=== PATIENT | female | born 1945 | race Caucasian/White ===

== ENCOUNTER 2016-12-28 21:09 | Inpatient (IN) | payer MEDICARE ==
[~2016-12-28] VITALS: Ht 162.6 cm; Wt 62.2 kg
[~2016-12-28 21:09] MED LIST: ACET-1890 PO; AMLO10TA3 PO; ASCO500C6 PO; ASPI-628 PO; CHOL200020 PO; CYAN1TAB42 PO; FERR-83 PO; LIP40 PO; LISI10TA2 PO; METO25TA6 PO; OMEP-113 PO
[2016-12-28 21:25] VITALS: BP 191/80; PULSE 97; RESP 15; O2SAT 99
--- NOTE | 2016-12-28 22:04 | ED.REPORT ---
HPI-General Illness Date of Service Dec 28, 2016 ED Provider: Dr. Agarwal Pt is a 71 y/o female w/ a hx of hypertension, hyperlipidemia, GERD, presenting to the ED via EMS w/ her son due to nausea and vomiting for 5 days. She stopped eating 3 days ago secondary to her vomiting but has been keeping down fluids. Today, she became very dizzy (spinning sensation which she attributes to vertigo ) and lightheaded which was exacerbated by movement. She has also been profoundly diffusely weak. Pt denies abdominal pain, hematemesis, diarrhea, CP , SOB, headache, dysuria, hematuria, fever, chills, melena. Medics noted a drop in BP from 185 to 128 when transitioning from laying to sitting. She lives on her own. She had a GI bleed 2 years ago which required 4 units of blood transfusion. Her symptoms today are not similar to that time. Nursing Notes Stated Complaint: DIZZY, PALE Chief Complaint: General Complaint Nursing Notes Reviewed: Yes Allergies: Coded Allergies: meperidine (Verified Allergy, Severe, chest pressure, 12/28/16) codeine (Verified Allergy, Intermediate, vomit, 12/28/16) tetracycline (Verified Allergy, Intermediate, vomit, 12/28/16) Scheduled Amlodipine (Amlodipine) 10 Mg Tablet 10 MG PO DAILY Ascorbic Acid (Vitamin C) 500 Mg Capsule.er 500 MG PO DAILY Aspirin (Aspir 81) 81 Mg Tablet. 81 MG PO DAILY Atorvastatin (Lipitor) 40 Mg Tablet 40 MG PO HS Cholecalciferol (Vitamin D3) (Vitamin D-3) 2,000 Unit Capsule 1,000 UNIT PO DAILY Cyanocobalamin/Folic Acid (Vitamin N13-Kjiel Acid Tablet) 1 Each Tablet 1 EACH PO DAILY Ferrous Sulfate (Ferrous Sulfate) 325 Mg Tablet 325 MG PO DAILY Lisinopril (Lisinopril) 10 Mg Tablet 10 MG PO DAILY Metoprolol Tartrate (Metoprolol Tartrate) 25 Mg Tablet 25 MG PO BID Omeprazole Magnesium (Omeprazole) 20 Mg Capsule. 20 MG PO DAILY Scheduled PRN Acetaminophen (Tylenol) 325 Mg Tablet 325 MG PO PRN PRN PRN For Pain General Time Seen by MD: 22:03 Chief Complaint Vomiting Hx Obtained From: Patient, Son, EMS Arrived By: Ambulance Sudden in Onset?: No Onset Occurred: 5 days ago Symptom Duration: Since onset Severity: Current: No pain currently Severity: Maximum: No pain Past Medical History Past Medical History Hypertension Hyperlipidemia GERD Vertigo Hx of GI bleed Past Surgical History x3 Cholecystectomy Appendectomy Hernia repair Smoking History Current Every Day Smoker, Light Tobacco Smoker Ambulatory Status Independent Review of Systems Full Review of Systems Constitutional: Reports: Weakness - generalized, Denies: Chills, Fever Respiratory: Denies: Shortness of breath Cardiovascular: Denies: Chest pain GI: Reports: Nausea, Vomiting, Denies: Abdominal pain, Bloody/tarry stool, Diarrhea, Hematemesis, Hematochezia, Melena Female: Denies: Dysuria, Hematuria Neurologic: Reports: Dizziness, Lightheaded, Spinning sensation, Denies: Headache Complete sys rev & neg: except as marked. Physical Exam Vital Signs Vital Signs Date Time Temp Pulse Resp B/P Pulse Ox O2 Delivery O2 Flow Rate FiO2 12/28/16 22:38 189/85 147/91 120/59 12/28/16 21:25 37.2 97 15 191/80 99 Room Air Initial VS: Reviewed, Vital signs abnormal Head / Eyes: Atraumatic, Normocephalic, PERRL Neck: Supple, Full range of motion Respiratory: Breath sounds normal, Clear to auscultation, No respiratory distress Extremities: Vascular intact, Neuro intact, No swelling, No tenderness Skin: Warm, Dry, No cyanosis Neurologic: Alert, Oriented, Nonfocal Psychiatric: Mood/affect normal, Behavior normal, Normal thought content General/Constitutional: Awake, Alert, No acute distress, Cooperative, Not toxic appearing ENT: Atraumatic, Airway patent Mouth: Positive: Mucous membranes dry Cardiovascular: Heart rate NL, Regular rhythm, Heart sounds NL, No gallop, No murmurs, No rubs, Cap refill not delayed, Peripheral circulation NL Heart rate increases when going from lying to sitting up Abdomen: Atraumatic, Soft, Non-tender, No guarding, No rebound, No distention, No palpable mass Interpretation & Diagnostics Lab Results Interpretation Result Diagram: 12/28/16212212/28/162122 Test 12/28/16 21:23 White Blood Count 10.4th/mm3 (3.8-10.1) Red Blood Count 6.50mil/mm3 (3.90-5.20) Hemoglobin 12.0g/dL (12.0-15.6) Hematocrit 40.3% (35.0-46.0) Mean Corpuscular Volume 62.0fL (81-100) Mean Corpuscular Hemoglobin 18.5pg (27.0-35.0) Mean Corpuscular Hemoglobin Concent 29.8% (32.0-37.0) Red Cell Distribution Width 20.8% (12.3-15.4) Platelet Count javi/L (150-400) Neutrophils (%) (Auto) 68.5% (40-74) Lymphocytes (%) (Auto) 22.3% (14-46) Monocytes (%) (Auto) 7.6% (4-12) Eosinophils (%) (Auto) 1.0% (0-5) Basophils (%) (Auto) 0.3% (0-3) Hold Purple Top Tube Received (Received) Prothrombin Time 10.7sec (8.1-12.5) Prothromb Time International Ratio 1.00ratio Activated Partial Thromboplast Time 26.8sec (22.8-33.0) Hold Blue Top Tube Received (Received) Sodium Level 135mEq/L (134-144) Potassium Level 3.9mEq/L (3.5-5.2) Chloride Level 91mEq/L (97-108) Carbon Dioxide Level 16mmol/L (18-29) Blood Urea Nitrogen 28mg/dL (8-27) Creatinine 1.20mg/dL (0.57-1.00) Estimat Glomerular Filtration Rate 64mL/min (>59) Glucose Level 94mg/dL (60-99) Calcium Level 9.6mg/dL (8.5-10.1) Magnesium Level 2.2mg/dL (1.6-2.6) Total Bilirubin 0.9mg/dL (0.0-1.2) Aspartate Amino Transf (AST/SGOT) 23U/L (0-50) Alanine Aminotransferase (ALT/SGPT) 11U/L (0-32) Alkaline Phosphatase 115U/L (25-165) Troponin T 0.010ug/L (0.0-0.011) Pro-B-Type Natriuretic Peptide 367.0pg/mL (0-301) Total Protein 8.0g/dL (6.4-8.4) Albumin 4.4g/dL (3.4-5.0) Hold Red Top Tube Received (Received) Hold [place] Top Tube Received (Received) ECG Interpretation ECG Interpretation: Sinus rhythm rate 89 Very small Q wave in II, III, and AvF Time: 23:18 Interpreted by: ED physician Normal ECG Interpretation: No acute ischemic changes X-Ray Chest Interpretation View: Portable, 1 view Interpretation / Wet Read by: Wet read ED physician NL X-Ray Chest Findings: No infiltrate, No acute disease Re-Eval/Medical Decision Med Decision/Clinical Course 71-year-old female with past medical history of hypertension and hyperlipidemia here with vertiginous symptoms for the last several days, along with orthostasis and vomiting. Differential diagnosis includes but is not limited to dehydration versus electrolyte abnormality versus acute kidney injury versus viral gastroenteritis. Patient's lab are remarkable for mild renal insufficiency. I do not know what her baseline renal function is. She does not show any evidence of anemia. She was extremely orthostatic in the emergency department both symptomatically, and from vital signs standpoint. She was given 2 L of fluids, and admitted to the hospitalist service for her orthostasis. She is aware and amenable to admission at this time. Time of Eval: 23:18 Re-Evaluation/Progress Note: Pt rechecked. Informed pt of need for admission for further evaluation. Pt understands and agrees with plan for admission. All questions addressed. Consultation : Referral / Consult Name: Siddharth Perez MD Consulted With: Hospitalist Call Returned at: 23:22 Landscape Foreman: Will see patient, Agrees with eval, Agrees with plan, Accepts admit Counseled Regarding: Diagnosis, Lab results, Need for admission Discharge & Departure Primary Impression: Orthostasis Disposition: ADMITTED TO HOSPITAL Discharge Condition All VS Reviewed: Yes Condition: Stable Referrals: NOPCP (PCP) Scribe Attestation Portions of this note were transcribed by Abran Puentes. I, Dr. Agarwal, personally performed the history, physical exam and medical decision-making; I reviewed and confirmed the accuracy of the information in the transcribed note. Signed by Cailin Hebert, 12/28/16 - [id number] Irina Agarwal MD Dec 28, 2016 22:04 ABRAN PUENTES Dec 28, 2016 22:20
[2016-12-28 22:15] LABS: BASOPHILS % (AUTO) 0.3 % (0-3); MONOCYTES % (AUTO) 7.6 % (4-12); Mean Corpuscular Hemoglobin 18.5 pg (27.0-35.0); NEUTROPHILS % (AUTO) 68.5 % (40-74)
[2016-12-28] MEDS ORDERED: 0.9% Sodium Chloride 1,000 ML IV ONE (22:20)
[2016-12-28 22:26] LABS: TROPONIN T 0.01 ug/L (0.0-0.011)
[2016-12-28 22:37] LABS: Magnesium 2.2 mg/dL (1.6-2.6)
[2016-12-28 22:38] VITALS: BP_SYST 120; BP_SYST 147; BP_SYST 189; BP_DIAS 59; BP_DIAS 85; BP_DIAS 91
[2016-12-28] MEDS ORDERED: Ondansetron 2 mg/mL 2 mL Inj IVPUSH PRN (23:25)
[2016-12-28] MEDS ORDERED: Alum-Mag Hydrox-Simeth 30 mL Suspension PO PRN (23:25)
[2016-12-29] VITALS (10 sets, daily range): BP systolic 116–183; BP diastolic 66–83; PULSE 91–101; RESP 17–20; O2SAT 97–98
[2016-12-29] MEDS ORDERED: Ondansetron 2 mg/mL 2 mL Inj IVPUSH PRN (00:40)
[2016-12-29] MEDS ORDERED: Polyethylene Glycol (PEG) 17 Gm Powder PO PRN (00:40)
[2016-12-29] MEDS ORDERED: 0.9% Sodium Chloride 1,000 ML IV ONE (00:40)
[2016-12-29] MEDS ORDERED: Alum-Mag Hydrox-Simeth 30 mL Suspension PO PRN (00:40)
[2016-12-29] MEDS ORDERED: Labetalol 5 mg/mL 4 mL Inj IVPUSH PRN (01:35)
[2016-12-29 01:50] LABS: APPEARANCE,URINE CLEAR (CLEAR,HAZY); COLOR,URINE YELLOW (YELLOW); OCCULT BLOOD,URINE SMALL (NEGATIVE); PH,URINE 5.5 (5.0-8.0); UROBILINOGEN,URINE NORMAL (NORMAL)
--- NOTE | 2016-12-29 02:45 | PCM.HPMED ---
Subjective Date of Service Dec 29, 2016 Primary Provider: Admitting Physician: Siddharth Perez MD Primary Care Physician: Jones Attending Physician: Siddharth Perez MD Chief Complaint: Dizziness History of Present Illness: Patient is a 71-year-old female with history of CVA, hypertension, and dyslipidemia presenting with dizziness and vomiting. The patient reports onset of dizziness about five days ago. This was preceded by a couple of days where she "didn't feel very well," however, the patient isn't able elaborate on this. The patient describes the dizziness as the room spinning. She states it was noticeable upon standing and caused her to vomit. As a result, she hasn't eaten over the past four days and has only been drinking water. The patient reports head movements seem to make the dizziness worse. Patient's son visited her today and subsequently summoned EMS. In the ED, the patient was found to be orthostatic. At time of visit, the patient reports her dizziness has improved. She endorses fatigue but otherwise denies weakness, headache, acute vision change, tinnitus, hearing changes, changes in smell, numbness, tingling, chest pain, shortness of breath, abdominal pain, diarrhea, constipation, dysuria. In the ED, vitals: temp 37.2, HR 97, RR 15 satting 99% on room air, BP 191/80. Notable labs: BUN 28, creatinine 1.20 Review of Systems: A comprehensive review of systems was conducted with the patient and found to be negative except as above in the History of Present Illness. Allergies Coded Allergies: meperidine (Verified Allergy, Severe, chest pressure, 12/28/16) codeine (Verified Allergy, Intermediate, vomit, 12/28/16) tetracycline (Verified Allergy, Intermediate, vomit, 12/28/16) Home Medications None reported PMH Hypertension Dyslipidemia GERD History of GI bleed History of CVA ( 1990), TIA (2013) . Surgical History x3 Cholecystectomy Appendectomy Hernia repair Angioplasty for renal artery stenosis Family History Mother at [id number] from intracerebral hemorrhage following trauma Father at [id number] from [place] Social History Occupation: Retired, former [employer] Hx Alcohol Use: No Hx Substance Use: No Smoking Status: Current Every Day Smoker (Smokes 2 packs per week. Has smoked > 30 years), Light Tobacco Smoker Exam Vital Signs Vital Sign - Last Date Time Temp Pulse Resp B/P Pulse Ox O2 Delivery O2 Flow Rate FiO2 12/28/16 22:38 189/85 147/91 120/59 12/28/16 21:25 37.2 97 15 99 Room Air Intake and Output 12/28/16 12/28/16 12/29/16 Cumulative From/Thru 15:00 23:00 07:00 12/28/16 21:25 - 12/28/16 22:33 Intake Total 1000 ml 1000 ml Balance 1000 ml 1000 ml Intake IV Total 1000 ml 1000 ml Exam General: No acute distress, well-developed, well-nourished, appropriately interactive HEENT: Normocephalic, atraumatic. External ears without defect. Middle ear and tympanic membranes without fluid or erythema. Pupils equal, round, and reactive to light. No nystagmus. Anicteric sclerae, moist conjunctivae, and no lid lag. Oropharynx free of erythema and cobble stoning. Lips are dry. Poor dentition of remaining lower teeth. No upper teeth. Neck: Supple. No lymphadenopathy or thyromegaly. Cardiovascular: Regular rate and rhythm with no murmurs, rubs, or gallops appreciated Pulmonary: Clear to auscultation bilaterally with no crackles, wheezes, or rhonchi. Normal respiratory effort with no use of accessory muscles. Abdomen: Bowel tones present. Soft, nontender, nondistended. Extremities: No clubbing, cyanosis, edema, or lymphadenopathy appreciated. Skin: Normal temperature, turgor, and texture; no rash, ulcers, or subcutaneous nodules appreciated. Neurological: Cranial nerves grossly intact. Motor strength 5/5 upper and lower extremities bilaterally. Sensation equal bilaterally. Patient able to stand and ambulate. No known gait impairment. Negative head impulse test Psychiatric: Normal mood and affect. Alert and oriented to person, place, and time. Lab and Diagnostics Result Diagram: 12/28/16212212/28/162122 Assessment & Plan Patient is a 71-year-old female with history of CVA, hypertension, and dyslipidemia presenting with dizziness and vomiting. 1. Hypertensive emergency. Present on admission. Active -BP 191/80 on admit with vertigo and JERMAIN -Patient has history of hypertension but is not on medication as outpatient -Possibly as a result of stroke or medication non-compliance -Labetalol PRN 2. Acute vertigo with vomiting. Present on admission. Improving -Likely secondary to #1 above -CT brain -MR stroke protocol to rule out stroke 3. Acute kidney injury. Present on admission. Active -Uncertain acuity; no baseline creatinine -Creatinine 1.20 -Possibly volume depletion from vomiting and decreased intake -Follow with CMP 4. Dyslipidemia, chronic. Present on admission -Currently not on statin -Lipid panel pending 5. Hypertension, chronic. Present on admission -See #1 above -Not on any antihypertensive as outpatient -Will likely need to reinstitute prior to discharge 6. GERD, chronic. Present on admission -Follow clinically Patient Status: Patient is admitted under observation status with expected length of stay less than 2 midnights due to severity of presenting symptoms, risk of adverse event, and complexity of treatment plan. ---- Addendum: [facility] read of CT head: Mild atrophy and periventricular white matter changes consistent with the patient's age. CSF density structure in cerebellum on the left. This may represent an arachnoid cyst or an old cerebellar infarct. Lack of mass effect makes a cystic neoplasm less likely. Followup would depend on history. Old lacunar infarct on the right. No hemorrhage or other specific acute abnormality demonstrated. Radiologist: Bob Ponce MD . VTE Prophylaxis: SCDs Resuscitation Status: CPR: Attempt Resuscitation Attending Statement The patient was seen and examined together with Dr. Arizmendi on 12/28 and I agree with the history, exam and plan as outlined in the note above. Abdoul Arizmendi DO Dec 29, 2016 00:52 Siddharth Perez MD Dec 29, 2016 03:29
--- NOTE | 2016-12-29 03:09 | NUR ---
Admission Pt arrived to room 3007 alert and orientedx3, conversing in full sentences and able to make needs known. Pt denied any pain or SOB and was oriented to room, call light, bed and policies. Pts orthostatic BP was taken on arrival and found to be positive, MD notified. Pt was transported down to CT by this RN and Pt was able to self transfer to and from chair with minimal reports of dizziness. Pt instructed to not get out of bed with out calling for assistance and Pt agreed. Pt has been sleeping with call light in reach and bed in lowest position.
[2016-12-29 06:50] LABS: BASOPHILS % (AUTO) 0.4 % (0-3); EOSINOPHILS % (AUTO) 2.4 % (0-5); MONOCYTES % (AUTO) 9.5 % (4-12); Mean Corpuscular Hemoglobin 18.6 pg (27.0-35.0); Mean Corpuscular Volume 62.8 fL (81-100); NEUTROPHILS % (AUTO) 67.5 % (40-74); Platelet Count 286 bil/L (150-400)
--- NOTE | 2016-12-29 08:03 | DRSVH ---
PROCEDURE: X-RAY CHEST ONE VIEW, PORTABLE ([id number]) INDICATIONS: weakness TECHNIQUE: One view of the chest was acquired. COMPARISON: None. FINDINGS: Surgical changes and devices: None. Lungs and pleura: No pleural effusions or pneumothorax. Lungs are clear. Mediastinum: Mediastinal contours appear normal. Heart size is normal. Bones and chest wall: No suspicious bony lesions. Overlying soft tissues appear unremarkable. IMPRESSION: 1. No acute cardiopulmonary disease. Dictated by: Gagandeep Fowler M.D. on 12/29/2016 at 8:01 Approved by: Gagandeep Fowler M.D. on 12/29/2016 at 8:02
[2016-12-29] MEDS: Heparin 5,000 Unit/mL Inj SUBQ SCH ×2 (08:08→17:40)
[2016-12-29] MEDS ORDERED: Influenza (Adult) Vaccine 0.5 mL Syringe IM ONE (08:30)
[2016-12-29] MEDS ORDERED: Heparin 5,000 Unit/mL Inj SUBQ SCH (08:30)
--- NOTE | 2016-12-29 08:51 | DRSVH ---
PROCEDURE: CT BRAIN WITHOUT CONTRAST ([id number]) INDICATIONS: vertigo TECHNIQUE: Noncontrast 4.5 mm thick angled axial sections acquired from the foramen magnum to the vertex, with c oronal reformats. COMPARISON: [facility], CT, HEAD WITHOUT CONTRAST, 01/10/2014, 15:46. FINDINGS: Image quality: Excellent. CSF spaces: Basal cisterns are patent. No extra-axial fluid collections. The ventricles are symmet caitlyn in size and shape. Brain: There is a 2.4 x 2.9 x 2.5 cm hypodensity suggesting encephalomalacia in the left cerebellar hemisphere, which is new compared to 01/10/2014, likely sequelae of old infarct. There is subtle hypod ensity in the left cerebellar peduncle, suspicious for subacute infarct. A small lacunar infarct is a gain noted in the right internal capsule. No intracranial bleeds or masses. There is mild cerebral v olume loss for age, with resultant ventricular and sulcal prominence. There are moderate periventric ular and deep white matter chronic small vessel ischemic changes. There is intracranial internal car otid artery atherosclerosis. Skull and face: Calvarium and visualized facial bones appear intact, without suspicious lesions. Sinuses: Visualized sinuses and mastoids are clear. IMPRESSION: 1. Suspect an old infarct in the left cerebellar hemisphere with encephalomalacia. There is subtle hy podensity in the left cerebellar peduncle, which could represent superimposed subacute infarct. 2. A lacunar infarct in the right internal capsule. 3. Cerebral volume loss and chronic microvascular ischemic changes. No significant discrepancy with the overnight stocker radiology preliminary report. Dictated by: Jesusita Grant M.D. on 12/29/2016 at 8:34 Approved by: Jesusita Grant M.D. on 12/29/2016 at 8:49
[2016-12-29 08:57] LABS: Unsaturated Iron Binding 274.2 ug/dL
--- NOTE | 2016-12-29 12:52 | NUR ---
Transferred from MRI Patient back from MRI at 1253.
--- NOTE | 2016-12-29 13:14 | DRSVH ---
PROCEDURE: MRI STROKE PROTOCOL ([id number]) Pre- and post-contrast brain MRI, non-contrast brain MR angiogram, pre- and postcontrast neck MR cheryle ogram INDICATIONS: 5 day history of vertigo. TECHNIQUE: Brain: Noncontrast axial T1 spin echo, axial T2 fast spin echo, sagittal and axial FLAIR, coronal T2 fast spin echo, axial gradient echo, axial diffusion and ADC through the brain. After the administr ation of contrast, axial 3D VIBE of the cranial vasculature and brain. Brain MRA: Non-contrast 3-D time of flight MR angiogram, with multiple tzogwlm-ysrorrwdv-rugpmhdmpt (MIP) reformats performed. Neck MRA: Axial and sagittal TruFISP through the neck. Coronal dynamic MR angiogram during administ ration of contrast in the arterial and venous phases, with 3-dimenstional smrydnr-nwymkejmt-ycssfzsdl n (MIP) reformats constructed from subtraction images. COMPARISON: [facility], CT, CT BRAIN WO CON, 12/29/2016, 1:46. FINDINGS: Image quality: Excellent. BRAIN: CSF spaces: Ventricles are normal in size and shape. Basal cisterns are patent. No extra-axial flu id collections. Brain: No intracranial bleeds or mass effects. Reynoso-white matter interface is normal. There is mild diffuse cerebral volume loss. There is a mild degree of patchy high FLAIR signal within the perivent ricular and subcortical white matter. There is a small chronic right lateral thalamic infarct. Diffus ion weighted images demonstrate a 50 mm diameter region of elevated signal intensity within the left inferior cerebellum involving the cerebellar vermis, as well as the posterior aspect of the left supe rior medulla oblongata. This region demonstrates moderate FLAIR signal elevation, and is consistent w ith a late subacute infarct. Enlarged flow voids involving the left internal carotid artery are prese nt. There is curvilinear enhancement seen within the left cerebellar infarct, compatible with normal post infarct sequelae. Skull and face: Calvarial marrow signal is normal. Orbits appear normal. Sinuses: Sinuses and mastoids are clear. BRAIN MR ANGIOGRAM: Anterior circulation: There is severely reduced flow within the cavernous segment of the right intern retail al carotid artery. 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 There is a 6 mm diameter saccular aneurysm protruding medially from the anterior asp ect of the cavernous segment of the left internal carotid artery. The flow within the paired anterior cerebral arteries is normal and symmetric. The flow within the middle cerebral arteries is normal a nd symmetric. The anterior communicating artery is seen. Posterior circulation: There is markedly reduced flow within the distal left vertebral artery. No lef t posterior-inferior cerebellar artery flow is seen. The flow within the posterior cerebral arteries is normal and symmetric. NECK MR ANGIOGRAM: Carotids: There is a common origin of the innominate left common carotid artery, which is patent. The origins of the common carotid arteries appear patent. The calibers and courses of both common carot id arteries are normal. There is roughly 70% origin stenosis involving the left internal carotid minerva ry. There is fusiform aneurysmal dilatation of the left proximal cavernous internal carotid artery, m easuring 9 mm. There is a focal 6 mm diameter saccular aneurysm protruding medially from the anterior aspect of the cavernous segment of the left internal carotid artery. There is a high-grade weblike s tenosis involving the right internal carotid artery origin, measured at roughly 80%. Posterior circulation: Right vertebral artery is dominant and patent. Left proximal vertebral artery is not well seen. There is patency of the distal left vertebral artery. Miscellaneous: High-grade right proximal subclavian artery stenosis. Moderate to high-grade left subc lavian artery origin stenosis. Pre-contrast images through the neck demonstrate an 18 mm diameter lef t thyroid lobe mass IMPRESSION: BRAIN MRI: 1. Late subacute left cerebellar and posterior medullary infarct. Post contrast-enhancement is seen w ithin the infarct, likely secondary to normal post-infarct sequelae. Followup brain MRI with and with out intravenous contrast in 3 months is recommended to rule out the less likely possibility of underl felicia neoplasm. 2. Volume loss and small vessel ischemic disease. 3. Small chronic right thalamic infarct. BRAIN MR ANGIOGRAM: 1. Markedly reduced flow within the right distal internal carotid artery. 2. 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 3. 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 NECK MR ANGIOGRAM: 1. High-grade, roughly 80% right internal carotid artery origin stenosis. Corroboration with carotid arterial duplex examination is recommended. 2. High-grade, roughly 70% left internal carotid artery origin stenosis. 3. 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 4. Patent right vertebral artery. Suboptimally visualized and small caliber left proximal vertebral a rtery. 5. High-grade right and moderate to high-grade left subclavian artery stenoses. 6. Left thyroid mass, which could be further assessed with MRI, if clinically indicated. Findings discussed with Dr. Montalvo on 12.29.16 at 1305 hrs. The estimate of stenosis included in the report of the imaging study was calculated using the NASCET method Dictated by: Aj Arizmendi M.D. on 12/29/2016 at 12:56 Approved by: Aj Arizmendi M.D. on 12/29/2016 at 13:13
--- NOTE | 2016-12-29 14:56 | PCM.PNMED ---
Subjective Date of Service Dec 29, 2016 Subjective denies any new issues/complaints. Exam Vital Signs Vital Sign - Last Date Time Temp Pulse Resp B/P Pulse Ox O2 Delivery O2 Flow Rate FiO2 12/29/16 14:16 36.7 99 18 165/66 98 Room Air Intake and Output 12/28/16 12/28/16 12/29/16 Cumulative From/Thru 15:00 23:00 07:00 12/28/16 21:25 - 12/29/16 06:41 Intake Total 1000 ml 808 ml 1808 ml Output Total 350 ml 350 ml Balance 1000 ml 458 ml 1458 ml Intake Oral 433 ml 433 ml IV Total 1000 ml 375 ml 1375 ml Output Urine Total 350 ml 350 ml General: Alert, Oriented X3, Cooperative, No Acute Distress Eyes: PERRLA, EOMI, Scleral Anicteric Mouth: Mucous Membr Moist/[place] Neck: Supple Chest & Lungs: Chest Wall Normal, Clear to auscultation & percussion Cardiovascular: Regular Rate/Rhythm Pulses: NL carotid, radial, femoral, DP, PT Abdomen: Non-tender, Non-distended, Normoactive bowel tones, Soft Extremities: No cyanosis/clubbing/edma bilat Neurological: Grossly Neurologically Intact, Cranial Nerves 2-12 Intact, Normal Speech IVs and Medications Medications Reviewed: Medications were reviewed in detail Lab and Diagnostics Result Diagram: 12/29/1653912/29/16539 Assessment & Plan 71-year-old female with history of CVA, hypertension, and dyslipidemia presenting with dizziness and vomiting. # Hypertensive emergency. Present on admission. Resolved -BP 191/80 on admit with vertigo and JERMAIN -Patient has history of hypertension but is not on medication as outpatient -Possibly as a result of stroke or medication non-compliance -Labetalol PRN # Acute vertigo with vomiting. Present on admission. 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 if also partially due to BPV given symptoms now resolved -will need to review with [facility] Tele-stroke given no neurology consult available here # Acute kidney injury. Present on admission. Resolved. -Possibly volume depletion from vomiting and decreased intake -Follow up # Dyslipidemia, chronic. Present on admission -c/w Statin # Hypertension, chronic. Present on admission. improved -Not on any antihypertensive as outpatient -Will likely need to reinstitute prior to discharge -start low dose Lisinopril # GERD, chronic. stable Dispo: possible to transfer to higher level care vs home in 1-2 days pending further discussion with neurology consult VTE Prophylaxis: SCDs Resuscitation Status: CPR: Attempt Resuscitation Time spent 35 min Jaspal Montalvo Dec 29, 2016 14:56
--- NOTE | 2016-12-29 15:09 | NUR ---
Social Work Initial Assessment: SW met with patient at bedside to discuss discharge plan. Patient is a 71 year old female admitted on 12/29/16 under observation status for orthostasis. Patient payer as Medicare. Patient has no terminal operator disability nor [place] benefits .Patient states having no PCP at this time and states having been unable to establish provider. SW to coordinate PCP appointment with residency clinic appointment at discharge. Patient resides in [facility] independently. [facility]. Patient has no previous HHC, SNF, or AD history. Patient declined completion of AD at this time. Patient states having a walker for use at home. Patient states being independent with needs at baseline and states that she still drives independently. Patient states chapito Haro checks in and assist with care needs. Patient states she to contact [employer] for home food services at discharge. Therapy ordered. SW to follow therapy notes following eval to ensure home safety. PLAN: Home alone in [facility]. Transport home via friend/family POV. Pending PT eval for further discharge recommendations. Patient under observation status. Possible rule out for HHC at discharge. SW to follow. Hank GRACIA Addendum: 12/29/16 at 1515 by SAYRA NULL Amended: Links added.
--- NOTE | 2016-12-29 15:31 | NUR ---
Evaluation completed. Please go to "Notes" then click on "Assessments and Notes" (bottom left corner of screen). Then select appropriate discipline tab on top of screen.
--- NOTE | 2016-12-29 15:41 | NUR ---
Transfer[facility] [place] [facility] Patient transferred [place] [facility] at 1530. Gave report to Courtney VIDALES. Patient left floor via wheelchair accompanied by primary RN with no signs of distress.
[2016-12-30] VITALS (8 sets, daily range): BP systolic 108–163; BP diastolic 54–78; PULSE 82–100; RESP 16–18; O2SAT 96–99
--- NOTE | 2016-12-30 05:39 | NUR ---
Insomnia Pt reported they haven't slept since they've been here. Got order for melatonin and pt has finally been able to sleep.
[2016-12-30] MEDS: Heparin 5,000 Unit/mL Inj SUBQ SCH ×3 (07:48→16:11)
--- NOTE | 2016-12-30 11:14 | NUR ---
Case Management: YANES and Medicare Part D info given and explained to pt in room at 11:00 am. All questions answered. Copies given to pt, original YANES placed in pt's hard chart. SUZANNE San RN
--- NOTE | 2016-12-30 14:33 | PCM.PNMED ---
Subjective Date of Service Dec 30, 2016 Subjective denies any new issues/complaints. Exam Vital Signs Vital Sign - Last Date Time Temp Pulse Resp B/P Pulse Ox O2 Delivery O2 Flow Rate FiO2 12/30/16 11:38 Nasal Cannula 12/30/16 10:02 91 12/30/16 07:51 36.6 18 159/75 98 Intake and Output 12/29/16 12/29/16 12/30/16 Cumulative From/Thru 15:00 23:00 07:00 12/28/16 21:25 - 12/30/16 06:27 Intake Total 600 ml 400 ml 2808 ml Output Total 800 ml 1150 ml Balance 600 ml -400 ml 1658 ml Intake Oral 600 ml 400 ml 1433 ml IV Total 1375 ml Output Urine Total 800 ml 1150 ml # Voids 2 2 Exam General: Alert, Oriented X3, Cooperative, No Acute Distress Eyes: PERRLA, EOMI, Scleral Anicteric Mouth: Mucous Membr Moist/[place] Neck: Supple Chest & Lungs: Chest Wall Normal, Clear to auscultation bilat Cardiovascular: Regular Rate/Rhythm Pulses: NL carotid, radial, femoral, DP, PT Abdomen: Non-tender, Non-distended, Normoactive bowel tones, Soft Extremities: No cyanosis/clubbing/edema bilat Neurological: Grossly Neurologically Intact, Cranial Nerves 2-12 Intact, Normal Speech IVs and Medications Medications Reviewed: Medications were reviewed in detail Lab and Diagnostics Result Diagram: 12/29/1653912/29/16 0540 Assessment & Plan 71-year-old female with history of CVA, hypertension, and dyslipidemia presenting with dizziness and vomiting. # Hypertensive emergency. Present on admission. Resolved -BP 191/80 on admit with vertigo and JERMAIN -Patient has history of hypertension but is not on medication as outpatient -Possibly as a result of stroke or medication non-compliance -Labetalol PRN # Acute vertigo with vomiting. Present on admission. 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 per neurology recommendation should c/w ASA 325 daily (given pt was not on ASA prior to presentation). c/w Statin and goal SBP < 140 - also recommended for patient to f/u w/ both neurology ([facility] [phone]) and Neurosurgery (Dr. Zayas) ([phone]) in as soon as possible. I offered to set patient up with f/u but she wishes to call herself and setup the appointment - f/u pending Echo - f/u w/ PT recs # Acute kidney injury. Present on admission. Resolved. -Possibly volume depletion from vomiting and decreased intake -Follow up # Dyslipidemia, chronic. Present on admission -c/w Statin # Hypertension, chronic. Present on admission. improved -Not on any antihypertensive as outpatient -start low dose Lisinopril # GERD, chronic. stable Dispo: SNF per PT and pending Echo VTE Prophylaxis: SCDs Resuscitation Status: CPR: Attempt Resuscitation Time spent 40 min Jaspal Montalvo Dec 30, 2016 14:33
--- NOTE | 2016-12-30 15:57 | NUR ---
Social Work Note Continued Discharge Planning: D/A: The Pt is a 71 y/o female that was admitted under observation status on 12/29/16 for orthostatis. PT completed on 12/30, recommending D/C to SNF via cabulance. SNF explored with Pt, she is declining the need for SNF at this time. The Pt is also not eligible for due to lack of homebound status. PT is not currently connected with a PCP and is requesting assistance in seeking follow up care with a female provider, first appointment available with a female provider is 03/06 at 1pm with MD Barriga. The Pt has also been scheduled for a hospital follow-up appointment on at 9:10am with MD Amos. Website information and appointment information given to Pt. P: Pt is not ready for D/C, ECHO pending. PT eval completed, recommending D/C to SNF via cabulance. PCP referral requested, established provider appointment scheduled for 03/06. Hospital follow up appointment scheduled for 01/12. Pt encouraged to follow up with primary care for outpatient PT, if necessary. Cyndie Farmer MSW Rug Cleaning Supervisor BASIL Raymond
--- NOTE | 2016-12-30 16:38 | DRSVH ---
[facility] [address] [place] [address] Echocardiogram Report Name: BELINDA HUERTA Date : 12/30/2016 Height: 64 in Hospital Exam Location: [facility] Weight: 133 lb Gender: Female BSA: 1.6 m2 : 1945 Age: 71 yrs BP: 159/75 mmHg Reason For Study: ORTHOSTATIC HTN Ordering Physician: Performed By: Ricci Ferguson Interpretation Summary The left ventricle is normal in size. Proximal septal thickening is noted. There is no echo evidence for significant left ventricular outflow tract obstruction. Left ventricular systolic function is normal without focal wall motion abnormalities. The ejection fraction is estimated to be 65-70%. Assessment of diastolic parameters indicates a relaxation abnormality of the left ventricle, consistent with normal filling pressures. The right ventricle is normal in size and function. The right ventricular systolic pressure is estimated at 21 mmHg assuming a right atrial pressure of 3 mm Hg. Both atria are normal in size. Lipomatous hypertrophy of the interatrial septum is noted. A bicuspid aortic valve cannot be excluded. There is no aortic valve stenosis. No aortic regurgitation is present. There is no other significant valvular heart disease. The aortic root is normal size. Procedure: A two-dimensional transthoracic echocardiogram with color flow and Doppler was performed. The study quality was technically adequate. Comparison is made with the echocardiogram of 01/25/15. The patient was in normal sinus rhythm during the exam. Left Ventricle: The left ventricle is normal in size. Left ventricular wall thickness is borderline increased. Proximal septal thickening is noted. There is no echo evidence for significant left ventricular outflow tract obstruction. Left ventricular systolic function is normal without focal wall motion abnormalities. The ejection fraction is estimated to be 65-70%. Assessment of diastolic parameters indicates a relaxation abnormality of the left ventricle, consistent with normal filling pressures. Right Ventricle: The right ventricle is normal in size and function. Atria: Both atria are normal in size. Lipomatous hypertrophy of the interatrial septum is noted. The interatrial septum is intact with no evidence for an atrial septal defect. Mitral Valve: The mitral valve is normal in structure and function. There is no mitral regurgitation noted. Aortic Valve: The aortic valve opens well. A bicuspid aortic valve cannot be excluded. There is no aortic valve stenosis. No aortic regurgitation is present. Tricuspid Valve: The tricuspid valve is normal in structure and function. There is trace tricuspid regurgitation. The right ventricular systolic pressure is estimated at 21 mmHg assuming a right atrial pressure of 3 mm Hg. Pulmonic Valve: The pulmonic valve is not well seen, but is grossly normal. There is no pulmonic valvular regurgitation. There is no other significant valvular heart disease. Great Vessels: The aortic root is normal size. The dimensions of the ascending aorta are normal. The pulmonary artery is normal size. The IVC is of normal diameter and collapses greater than 50% with a sniff. This suggests a low right atrial pressure of 3 mm Hg. Pericardium/ Pleura There is no pericardial effusion. There is no pleural effusion. MMode/2D Measurements & Calculations LVIDd: 3.4 cm LA dimension: 3.0 cm RA long axis LVOT diam LVIDs: 1.9 cm FS: 43.0 % LA A2 area: 17.2 cm RA area AoV Opening EPSS: 0.19 cm LA A4 area: 13.6 cm IVSd: 1.1 cm LA length (vol): 4.7 cm: 9.1 cm Ao root diam LVPWd: 0.89 cm LA vol: 42.0 ml RA vol LA vol index : 19.3 ml Aortic Jxn RA : 11.7 mm2 asc Aorta IVC diam: 1.3 cm Diam: 3.1 cm LV carpenter. diameter/BSA LV sys. diameter/BSA (cm/m^2): 2.1 (cm/m^2): 1.2 Doppler Measurements & Calculations Ao V2 max MV E max jas MV E/A: 0.49 TR max jas : 130.1 cm/sec : 48.9 cm/sec Med Peak E' Jas : 212.1 cm/sec Ao max P.8 mmHg MV A max jas TR max PG Ao mean P.3 mmHg : 100.0 cm/sec E/E' med: 18.2 : 18.0 mmHg LVOT Max Jas Lat Peak E' Jas PA V2 max : 115.5 cm/sec : 61.8 cm/sec E/E' lat: 7.6 PA mean PG SHANTHI(I,D): 3.2 cm E/e' average : 0.89 mmHg sev ratio: 0.78 PA Accel Time Pulm A Revs Dur : 0.08 sec MV A dur : 0.12 sec MV dec time: 0.18 secAo V2 mean LV V1 max PG PA V2 mean : 100.5 cm/sec : 45.1 cm/sec Ao V2 VTI: 24.0 cm LV V1 VTI PA pr(Accel) : 18.6 cm : 39.1 mmHg SHANTHI(V,D): 3.7 cm2 SHANTHI indexed to BSA Pulm A Revs Dur - MV A (cm^2/m^2): 2.0 Dur: -0.03 msec Reading Physician:MAC
--- NOTE | 2016-12-30 17:10 | NUR ---
Activity/BP Patient ambulated with PT today, able to walk half the hallway. Still wobbly during transfers, denies dizziness. Lisinopril 5mg started this pm. Orthostatic obtained as follows: Sitting= 126/67 mmHg, Standing= 110/67mmHg. Patient pleasant the whole shift, no other discomfort noted. For possible d/c tomorrow, Follow up appointments already set up by social work nurse. Will continue to monitor.
--- NOTE | 2016-12-30 18:05 | NUR ---
Case Management: COS to Inpatient completed. IMM explained to patient at 1630, all questions answered. Signed original in chart, copy given to patient. Jessica Ron RN
[2016-12-31] VITALS (8 sets, daily range): BP systolic 92–140; BP diastolic 55–75; PULSE 86–114; RESP 18–20; O2SAT 94–97
[2016-12-31] MEDS: Heparin 5,000 Unit/mL Inj SUBQ SCH ×4 (01:15→23:48)
--- NOTE | 2016-12-31 06:12 | NUR ---
orthostatic Hypotension pt still orthostatic hypotension during this morning (refer VS at 0444). pt state she felt so dizzy, recommended her to sit, lay down if she can tolerate it, but she wants to see the result since she felt so dizzy, lightheadedness, nauseated and retching, but she didn't vomit. pt lay down in bed with HOB all the way down with leg side of the bed elevated. pt back to base line in 15 minutes. will continue to monitor.
--- NOTE | 2016-12-31 14:49 | PCM.PNMED ---
Subjective Date of Service Dec 31, 2016 Subjective had more episode of dizziness and vomiting this am but feels better now Exam Vital Signs Vital Sign - Last Date Time Temp Pulse Resp B/P Pulse Ox O2 Delivery O2 Flow Rate FiO2 12/31/16 13:47 92 18 98/55 95 Room Air 12/31/16 08:00 36.9 Intake and Output 12/30/16 12/30/16 12/31/16 Cumulative From/Thru 15:00 23:00 07:00 12/28/16 21:25 - 12/31/16 06:41 Intake Total 1220 ml 300 ml 4328 ml Output Total 455 ml 1605 ml Balance 1220 ml -155 ml 2723 ml Intake Oral 1220 ml 300 ml 2953 ml IV Total 1375 ml Output Urine Total 455 ml 1605 ml # Voids 5 7 Exam General: Alert, Oriented X3, Cooperative, No Acute Distress Eyes: PERRLA, EOMI, Scleral Anicteric Mouth: Mucous Membr Moist/[place] Neck: Supple Chest & Lungs: Chest Wall Normal, Clear to auscultation bilat Cardiovascular: Regular Rate/Rhythm Pulses: NL carotid, radial, femoral, DP, PT Abdomen: Non-tender, Non-distended, Normoactive bowel tones, Soft Extremities: No cyanosis/clubbing/edema bilat Neurological: Grossly Neurologically Intact, Cranial Nerves 2-12 Intact, Normal Speech IVs and Medications Medications Reviewed: Medications were reviewed in detail Lab and Diagnostics Result Diagram: 12/29/1653912/29/1640 Assessment & Plan 71-year-old female with history of CVA, hypertension, and dyslipidemia presenting with dizziness and vomiting. # Hypertensive emergency. Present on admission. Resolved -now hypotensive -BP 191/80 on admit with vertigo and JERMAIN -Patient has history of hypertension but was not on medication as outpatient -Labetalol P -start low dose Lisinopril (5mg daily) on 12/30 and today hypotensive - hold Lisinopril and give some IVF # Acute vertigo with vomiting. Present on admission. 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 per neurology recommendation should c/w ASA 325 daily (given pt was not on ASA prior to presentation). c/w Statin and goal SBP < 140 - also recommended for patient to f/u w/ both neurology ([place] [facility] [phone]) and Neurosurgery (Dr. Zayas) ([phone]) in as soon as possible. I offered to set patient up with f/u but she wishes to call herself and setup the appointment - Echo: EF 65-70% - f/u w/ PT recs - Meclizine prn # Acute kidney injury. Present on admission. Resolved. -Possibly volume depletion from vomiting and decreased intake -Follow up # Dyslipidemia, chronic. Present on admission -c/w Statin # GERD, chronic. stable Dispo: SNF per PT in 1-2 days pending stable BP and improved symptoms VTE Prophylaxis: SCDs Resuscitation Status: CPR: Attempt Resuscitation Time spent 30 min Jaspal Montalvo Dec 31, 2016 14:48
[2016-12-31] MEDS ORDERED: 0.9% Sodium Chloride 1,000 ML IV ONE (14:50)
--- NOTE | 2016-12-31 15:11 | NUR ---
Gave access and faxed facesheet to [facility] per [employer]
--- NOTE | 2016-12-31 16:22 | NUR ---
Social Work Note Continued Discharge Planning: D/A: The Pt is a 71 y/o female that was admitted for orthostatis on 12/29/16. PT eval completed on 12/30, recommending SNF. Pt is continuing to decline SNF services, due to potential out of pocket costs associated with not meeting time criteria for three inpatient midnights. reports that Pt will being staying an additional night. SW discussed SNF services again with Pt, Pt given SNF list. Pt [facility] preferences [facility]. Pt not eligible for HH. P: Pt is not ready for D/C at this time. PT eval conducted 12/17, recommending SNF. Pt unsure about SNF due to potential out of pocket costs. SNF preference list given, Pt agreeable for referrals to [facility]. [facility] contacted for referral assistance. LENANA will continue to follow. BASIL Leal Product Development Actuary BASIL Banuelos
--- NOTE | 2016-12-31 18:35 | NUR ---
Blood pressure Pt's was mildly hypotensive in AM and orthostatic, complaining of feeling dizzy and nauseous. Lisinopril held in AM and doctor aware. Blood pressure in afternoon was 111/67. Pt was given meclizine PRN dizziness. IV fluids started at 100ml/hr. Continue to monitor.
[2017-01-01] VITALS (8 sets, daily range): BP systolic 110–166; BP diastolic 63–88; PULSE 89–120; RESP 18–24; O2SAT 94–99
--- NOTE | 2017-01-01 05:39 | NUR ---
Blood Pressure pt BP this morning (150/75 laying, 143/67 sitting, and 110/66 standing). pt still felt little dizzy today from sitting to standing position, but resolved right away, and no nausea and vomiting. pt took PO PRN Meclizine x1 during this shift per pt request. pt had mild fever (37.4), resolved with Tylenol. no c/o pain. Bed is locked and in low position. call light within reach. will continue to monitor.
[2017-01-01 05:57] LABS: Mean Corpuscular Hemoglobin 18.5 pg (27.0-35.0)
[2017-01-01 06:24] LABS: Magnesium 1.9 mg/dL (1.6-2.6)
[2017-01-01] MEDS: Heparin 5,000 Unit/mL Inj SUBQ SCH ×2 (09:01→16:37)
--- NOTE | 2017-01-01 10:59 | PCM.PNMED ---
Subjective Date of Service Jan 01, 2017 Subjective Pt still feeling weaker, less stable than her baseline, but is improved with use of Meclizine which was recently started. Not yet feeling ready to return home, but hopeful with continued improvement, by tomorrow she may be able to be DC'd home tomorrow in stead of considering SNF. Denies fever/chills. Denies dysuria. Denies any other pains/complaints at this time. Exam Vital Signs Vital Sign - Last Date Time Temp Pulse Resp B/P Pulse Ox O2 Delivery O2 Flow Rate FiO2 01/01/17 08:00 89 01/01/17 05:27 36.9 18 96 Room Air 01/01/17 05:14 150/75 143/67 110/66 Intake and Output 12/31/16 12/31/16 01/01/17 Cumulative From/Thru 15:00 23:00 07:00 12/28/16 21:25 - 01/01/17 06:15 Intake Total 480 ml 1194 ml 6002 ml Output Total 350 ml 400 ml 2355 ml Balance 130 ml 794 ml 3647 ml Intake Oral 480 ml 250 ml 3683 ml IV Total 944 ml 2319 ml Output Urine Total 350 ml 400 ml 2355 ml # Voids 7 # Bowel Movements 0 0 General: Alert, Oriented X3, Cooperative, No Acute Distress Eyes: PERRLA, EOMI Mouth: Mucous Membr Moist/[place] Cardiovascular: Regular Rate/Rhythm Extremities: No cyanosis/clubbing/edma bilat Neurological: Grossly Neurologically Intact IVs and Medications Medications Reviewed: Medications were reviewed in detail Lab and Diagnostics Result Diagram: 01/01/1740 01/01/1740 Assessment & Plan 71-year-old female with history of CVA, hypertension, and dyslipidemia presenting with dizziness and vomiting. # Hypertensive emergency. Present on admission. Resolved -BP stable overnight, previously labile. But hypertension now resolved since DC of ACEi. -BP 191/80 on admit with vertigo and JERMAIN -Patient has history of hypertension but was not on medication as outpatient -Had started low dose Lisinopril (5mg daily) on 12/30 and today hypotensive - IVFs DC'd, pt encouraged to push oral fluids, continue to monitor. # Acute vertigo with vomiting. Present on admission. 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 per neurology recommendation should c/w ASA 325 daily (given pt was not on ASA prior to presentation). c/w Statin and goal SBP < 140 - also recommended for patient to f/u w/ both neurology ([facility] [phone]) and Neurosurgery (Dr. Zayas) ([phone]) in as soon as possible. It was offered to patient that we set her up with f/u but she wishes to call herself and setup the appointment following DC. - Echo: EF 65-70% - f/u w/ PT recs - Meclizine prn has bee helpful, will start as standing order. # Acute kidney injury. Present on admission. Resolved. -Possibly volume depletion from vomiting and decreased intake - RFTs stable overnight. # Dyslipidemia, chronic. Present on admission -c/w Statin # GERD, chronic. stable Dispo: SNF per PT vs home as this is patient preference in 1 day pending stable BP and improved symptoms Pain Evaluation: Adequate Pain Control VTE Prophylaxis: SCDs Resuscitation Status: CPR: Attempt Resuscitation Time spent 25 minutes Liang Carr DO Jan 01, 2017 10:59
--- NOTE | 2017-01-01 11:41 | NUR ---
Social Work: Readiness for Discharge D: Pt discussed in am rounds. Pt is not medically stable for discharge at this time but is anticipated to be ready on Thursday. SOFT METALS ENGRAVER HAND reviewed pt's chart and dcp. Pt is on day 3 of stay and was made inpatient on 12/30, for a total of two inpatient midnights. Pt continues to be orthostatic with movement. Pt was able to tolerate 100-150 feet of mobilization on 12/30 however was not able to safely ambulate due to orthostatics on 12/31. Recommendation remains SNF cabulance. t/c to [facility]. Pt has been accepted at [facility] with Dr. Garcia to follow as long as pt obtains third midnight tonight. PPW and PASSR completed and on chart. A: Pt who is from [place]. P: Anticipate pt to likely discharge to [facility] tomorrow with Dr. Garcia to follow; BASIL Dominguez
--- NOTE | 2017-01-01 14:46 | NUR ---
Activity/dizziness Patient started on Meclizine for dizziness with good relief per patient report. Patient ambulating well with no dizziness. For possible discharge tomorrow. Will continue to monitor.
[2017-01-02] VITALS (7 sets, daily range): BP systolic 148–166; BP diastolic 61–81; PULSE 88–130; RESP 16–18; O2SAT 93–97
[2017-01-02] MEDS: Heparin 5,000 Unit/mL Inj SUBQ SCH ×4 (00:03→23:36)
--- NOTE | 2017-01-02 05:33 | NUR ---
Activity/Dizziness Pt got up to the bathroom and denies any dizziness. Pt was still unsteady on her feet. FEEDER WORKER POWER UNIT OPERATOR had to catch her shoulder at one point.
[2017-01-02 08:04] LABS: BASOPHILS % (AUTO) 0.4 % (0-3); EOSINOPHILS % (AUTO) 1.5 % (0-5); MONOCYTES % (AUTO) 13.3 % (4-12); Mean Corpuscular Hemoglobin 18.7 pg (27.0-35.0); Mean Corpuscular Volume 62.4 fL (81-100); NEUTROPHILS % (AUTO) 69.5 % (40-74); Platelet Count 289 bil/L (150-400)
--- NOTE | 2017-01-02 11:21 | NUR ---
[facility] can accept with when ready
--- NOTE | 2017-01-02 11:37 | PCM.PNMED ---
Subjective Date of Service Jan 02, 2017 Subjective Patient notes feeling some small improvements though not yet close enough to baseline that she feels safe for home discharge. Still noting some dizziness lightheadedness with ambulation though this has diminished and she is now able to walk to bathroom with minimal assistance and also able to walk further distances around the hospital floor. She has done her best to drink enough water, and advance her diet but admits she is still not drinking as much as at baseline. Denies any fever or chills overnight however, overall greatly improved since time of presentation. No other acute complaints at this time. Exam Vital Signs Vital Sign - Last Date Time Temp Pulse Resp B/P Pulse Ox O2 Delivery O2 Flow Rate FiO2 01/02/17 08:30 37.0 109 16 151/81 93 Room Air Intake and Output 01/01/17 01/01/17 01/02/17 Cumulative From/Thru 15:00 23:00 07:00 12/28/16 21:25 - 01/02/17 05:17 Intake Total 1520 ml 300 ml 7822 ml Output Total 2355 ml Balance 1520 ml 300 ml 5467 ml Intake Oral 1520 ml 300 ml 5503 ml IV Total 2319 ml Output Urine Total 2355 ml # Voids 6 3 16 # Bowel Movements 0 Exam General: Alert, Oriented X3, Cooperative, No Acute Distress Eyes: PERRLA, EOMI Mouth: Mucous Membranes Moist/[place]. Poor dentition. Cardiovascular: Regular Rate/Rhythm Extremities: No cyanosis/clubbing/edma bilat Neurological: Grossly Neurologically Intact IVs and Medications Medications Reviewed: Medications were reviewed in detail Lab and Diagnostics Result Diagram: 01/02/17 0750 01/02/17 0750 Assessment & Plan 71-year-old female with history of CVA, hypertension, and dyslipidemia presenting with dizziness and vomiting. # Hypertensive emergency. Present on admission. Resolved -BP stable overnight, previously labile. But hypertension now resolved since DC of ACEi, -BP 191/80 on admit with vertigo and JERMAIN -Patient has history of hypertension but was not on medication as outpatient -Had started low dose Lisinopril (5mg daily) on 12/30 and today hypotensive #SIRS: Tachycardia and Leucocytosis - This has been a persistent problem, intravenous fluids discontinued overnight with resultant elevation in pulse - Restarting intravenous fluids at this time, considering possible infectious etiology, may consider further evaluation for viral or bacterial infection should patient demonstrate fever or other signs supporting of infection. - We will continue observation overnight prior to considering further possible studies . # Acute vertigo with vomiting. Present on admission. Improved -MR stroke protocol shows: "Late subacute left cerebellar and posterior medullary infarct" -Reviewed MRI findings with RECESS.-stroke on 12/30/16. per neurology recommendation should c/w ASA 325 daily (given pt was not on ASA prior to presentation). c/w Statin and goal SBP < 140 - also recommended for patient to f/u w/ both neurology ([facility] [phone]) and Neurosurgery (Dr. Zayas) ([phone]) in as soon as possible. It was offered to patient that we set her up with f/u but she wishes to call herself and setup the appointment following DC. - Echo: EF 65-70% - f/u w/ PT recs - Meclizine prn has bee helpful, will start as standing order. Into splint discharge home on this medication, or to long-term facility in a.m. depending on patient's improvement over next 24 hours. # Acute kidney injury. Present on admission. Resolved. -Possibly volume depletion from vomiting and decreased intake - RFTs stable overnight. # Dyslipidemia, chronic. Present on admission -c/w Statin # GERD, chronic. stable Dispo: SNF per PT vs home as this is patient preference in 1 day pending stable pulse and improving white blood cell count in addition to and improved ambulation, should no sign of acute infection present. Pain Evaluation: Adequate Pain Control VTE Prophylaxis: SCDs Resuscitation Status: CPR: Attempt Resuscitation Time spent 30 minutes Liang Carr DO Jan 02, 2017 11:37
[2017-01-02] MEDS: 0.9% Sodium Chloride 1,000 ML IV SCH (11:43)
--- NOTE | 2017-01-02 16:20 | NUR ---
Social Work Note Continued Discharge Planning: D/A: The Pt is a 71 y/o female that was admitted on 12/29/16 for orthostatis. Pt guicho last completed 01/01, continuing to recommend discharge to SNF. [facility] Pt. Pt still unsure if she would like to transfer to SNF after discharge, SW to follow up with her 01/03/2017. Pt agreeable to HH, no preference given. Rotating calendar referred to, [facility] is scheduled for the week. F2F in folder. Pt would like HH no earlier than next week if she discharges home. The Pt states that her son will assist her at home if she does in fact go home. SW will continue to follow. P: The Pt not medically stable for discharge, likely tomorrow. PT recommending SNF, Pt unsure. [facility] both accepted, SW to follow up with Pt morning of 01/03/2017. Pt agreeable to HH if discharged home, opening no earlier than next week. [facility] and [facility] in folder. Cyndie Farmer, RIP [employer] EMILY LoganSW
--- NOTE | 2017-01-02 19:04 | NUR ---
MOBILITY Patient ambulated with PT in the hallway today. No dizziness noted this shift. Patient given senna fro constipation but no result yet, passing gas otherwise. For discharge to home tomorrow. Will continue to monitor.
[2017-01-03] VITALS (9 sets, daily range): BP systolic 131–162; BP diastolic 65–91; PULSE 81–118; RESP 12–18; O2SAT 93–97
--- NOTE | 2017-01-03 04:44 | NUR ---
Activity Did not have any dizziness on shift. Walked to bathroom well. Pt did not have any complaints of back pain.
[2017-01-03] MEDS: Heparin 5,000 Unit/mL Inj SUBQ SCH ×2 (08:47→17:37)
[2017-01-03] MEDS: 0.9% Sodium Chloride 1,000 ML IV SCH ×3 (08:48→19:56)
[2017-01-03 08:49] LABS: BASOPHILS % (AUTO) 0.5 % (0-3); EOSINOPHILS % (AUTO) 2.6 % (0-5); MONOCYTES % (AUTO) 14.3 % (4-12); Mean Corpuscular Hemoglobin 18.4 pg (27.0-35.0); Mean Corpuscular Volume 62.4 fL (81-100); NEUTROPHILS % (AUTO) 61.8 % (40-74); Platelet Count 303 bil/L (150-400)
--- NOTE | 2017-01-03 10:40 | NUR ---
Bethany BRITTON notified of physical therapy report of orthostasis this am with HR 140s to 150s with activity per technical services librarian. See PT note.
--- NOTE | 2017-01-03 12:31 | PCM.PNMED ---
Subjective Date of Service Jan 03, 2017 Subjective Patient has not improved as she had hoped, yesterday afternoon she was able to walk around the floor without significant return of dizziness, examination with physical therapy this morning demonstrated persistent orthostasis in addition to associated dizziness with rising. Patient still does not feel comfortable returning home given the symptoms, reluctant to go to shelter facility though at this time further inpatient evaluation may be warranted. Continues to deny chest pains or palpitations, denies any significant shortness of breath. Doing her best to drink a good amount of fluids, and her appetite is adequate. No other acute complaints or concerns reported this morning during my examination Exam Vital Signs Vital Sign - Last Date Time Temp Pulse Resp B/P Pulse Ox O2 Delivery O2 Flow Rate FiO2 01/03/17 10:13 99 01/03/17 08:26 144/91 01/03/17 08:25 36.7 18 93 Room Air Intake and Output 01/02/17 01/02/17 01/03/17 Cumulative From/Thru 15:00 23:00 07:00 12/28/16 21:25 - 01/03/17 05:58 Intake Total 1772 ml 1064 ml 97744 ml Output Total 2355 ml Balance 1772 ml 1064 ml 8303 ml Intake Oral 1500 ml 500 ml 7503 ml IV Total 272 ml 564 ml 3155 ml Output Urine Total 2355 ml # Voids 6 4 26 # Bowel Movements 0 Exam General: Alert, Oriented X3, Cooperative, No Acute Distress Eyes: PERRLA, EOMI Mouth: Mucous Membranes Moist/[place]. Poor dentition. Cardiovascular: Regular Rate/Rhythm Extremities: No cyanosis/clubbing/edema bilaterally. Neurological: Grossly Neurologically Intact IVs and Medications Medications Reviewed: Medications were reviewed in detail Lab and Diagnostics Result Diagram: 01/03/1761401/03/17614 Assessment & Plan 71-year-old female with history of CVA, hypertension, and dyslipidemia presenting with dizziness and vomiting. # Acute vertigo with vomiting. Present on admission. Improved -MR stroke protocol shows: "Late subacute left cerebellar and posterior medullary infarct" -Reviewed MRI findings with [facility] Tele-stroke on 12/30/16. per neurology recommendation should c/w ASA 325 daily (given pt was not on ASA prior to presentation). c/w Statin and goal SBP < 140 - also recommended for patient to f/u w/ both neurology ([facility] [phone]) and Neurosurgery (Dr. Zayas) ([phone]) in as soon as possible. It was offered to patient that we set her up with f/u but she wishes to call herself and setup the appointment following DC. - Echo: EF 65-70% - f/u w/ PT recs, continues to demonstrate patient becomes dizzy and orthostatic with rising. - Meclizine prn has been helpful to reduce symptoms had not resolved completely , as they still present with orthostatic changes. - Try increase injury fluids given tachycardia with associated blood pressure drop, however there certainly may be another factor involved rather than simply volume depletion. - Given persistent symptoms which have not improved with physical therapy, and specifically persistent orthostasis I have consulted neurologist for further evaluation of patient to determine what underlying etiology may account for this refractory condition. # Hypertensive emergency. Present on admission. Resolved -BP stable overnight, previously labile. But hypertension now resolved since DC of ACEi, -BP 191/80 on admit with vertigo and JERMAIN, now normalized. -Patient has history of hypertension but was not on medication as outpatient -Had started low dose Lisinopril (5mg daily) on 12/30 and today normotensive #SIRS: Tachycardia and Leucocytosis - This has been a persistent problem, intravenous fluids discontinued overnight with resultant elevation in pulse - Restarting intravenous fluids at this time, considering possible infectious etiology, may consider further evaluation for viral or bacterial infection should patient demonstrate fever or other signs supporting of infection. - We will continue observation overnight prior to considering further possible studies . # Acute kidney injury. Present on admission. Resolved. -Possibly volume depletion from vomiting and decreased intake - RFTs stable overnight. # Dyslipidemia, chronic. Present on admission -c/w Statin # GERD, chronic. stable Dispo: SNF per PT vs home as this is patient preference however ideally would like to achieve an improvement in patient's orthostatic symptoms and vertigo regardless of disposition. Pain Evaluation: Adequate Pain Control VTE Prophylaxis: SCDs Resuscitation Status: CPR: Attempt Resuscitation Time spent 35 minutes Liang Carr DO Jan 03, 2017 12:31
--- NOTE | 2017-01-03 13:18 | NUR ---
CT pt to CT at 1316. Stable. Addendum: 01/03/17 at 1332 by LUKE NAVA RN Back from CT at 1332, stable
--- NOTE | 2017-01-03 15:53 | DRSVH ---
PROCEDURE: CT ANGIOGRAPHY OF THE NECK WITH AND WITHOUT CONTRAST ([id number]) INDICATIONS: eval of vertebral arteries TECHNIQUE: After the administration of intravenous contrast, 1.5 mm axial sections acquired from the aortic arch to the [place] of [place]. Coronal 3-D maximum intensity projection (MIP) and/or volume rendering ref ormats were then performed. For radiation dose reduction, the following was used: automated exposur e control. COMPARISON: [facility], , MR STROKE PROTOCOL, 12/29/2016, 12:06. FINDINGS: Image quality: Excellent. The ventricular system and cortical sulci are normal in size and appearance for the patient's stated age. There is no acute intra-or extra axial fluid collection. No acute hemorrhage, mass lesion or mid line shift. Brainstem is unremarkable. Globes are symmetrical. Sinuses are aerated. Osseous structure s are intact. The anterior circulation, including the anterior and middle cerebral arteries, demonstrates no areas of hemodynamically significant stenosis, vascular occlusion or aneurysmal dilation. 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 In addition, there is a 6 mm saccular aneurysm along the anterior medial aspect of the left internal cavernous carotid artery . The posterior circulation demonstrates a right vertebral artery dominance. Basilar artery and posteri or cerebral arteries demonstrate no areas of hemodynamically significant stenosis, vascular occlusion or aneurysmal dilation. Posterior communicating arteries are within normal limits. There is a high grade stenosis, approximately 80-90% at the origin of the right internal carotid minerva ry. In addition, there is an approximate 75% stenosis of the left internal carotid artery origin. Jose Angel ateral subclavian artery stenosis is present, approximate 60-65% left and greater than 80% right. Aor tic arch demonstrates bovine anatomy, consistent with congenital variation. The left vertebral artery is clearly patent to the level of C6. There is patency at the level of its origin. However, between the proximal segment and C6, it is markedly atretic without definitive the visualized opacification. IMPRESSION: 1. 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 2. Approximate 6 mm aneurysm within the anterior left cavernous internal carotid artery. 3. Approximately 80-90% stenosis at the origin of the right internal carotid artery. 4. Approximate 75% stenosis at the left internal carotid artery origin. 5. Prominent bilateral subclavian artery stenosis, right greater than left. 6. Marked region without definitively identified opacification within the proximal and proximal midpo rtion of the left vertebral artery as above. While this could represent focal long segment occlusion, marked atresia 2 small for opacification could be considered if appropriate. The estimate of stenosis included in the report of the imaging study was calculated using the NASCET method Dictated by: Juliet Strickland M.D. on 01/03/2017 at 15:38 Approved by: Juliet Strickland M.D. on 01/03/2017 at 15:52
--- NOTE | 2017-01-03 16:13 | NUR ---
G[employer] ENGINE OPERATOR [employer] witnessed [facility]'s signature. EMILY MorganSW
--- NOTE | 2017-01-03 16:13 | NUR ---
Social work note - continued d/c planning. THEATRICAL TROUPER met with pt - pt states she did well with PT today - walked the unit and a flight of stairs. THEATRICAL TROUPER identified the plan of either going home with Home Health or to SNF for rehab. Pt states she is not ready to make a decision yet - states that she will decide tomorrow. Plan: Developing - SNF [facility] (A) [facility] ([facility]) [facility] and home with son. EMILY LoganSW
--- NOTE | 2017-01-03 18:17 | CONS ---
[address] [address] CONSULTATION REPORT PATIENT: BELINDA HUERTA : 1945 MR#: [id number] ADMIT: 12/29/2016 JOB ID: [id number] DATE OF SERVICE: 01/03/2017 NEUROLOGY CONSULTATION: REQUESTING PHYSICIAN: Liang Carr MD, for orthostasis and acute cerebellar stroke. HISTORY OF PRESENT ILLNESS: The patient is a 71-year-old female who presents for the subacute onset of vertigo on December 28, 2016. She has a history of hypertension, hyperlipidemia, GERD, and previous stroke, and is a cigarette smoker. The vertigo was so bad that she had stopped eating three days prior and was barely able to keep down fluids. Imaging of the brain indicated that she had a subacute stroke in the posterior inferior cerebral artery distribution in the left cerebellum. Of note was evidence of bilateral carotid stenosis and fusiform aneurysmal dilatation of the left proximal cavernous internal carotid artery of 9 mm, as well as a 6 mm diameter saccular aneurysm in the anterior left cavernous internal artery. Given the bilateral carotid artery high-grade stenosis, as well as the left internal carotid artery aneurysms, as well as high-grade left subclavian artery stenosis, [facility] was contacted. There is no documentation of the discussion except that she was advised to be seen, not urgently, but as soon as possible by neurosurgery at [facility]. The patient has slowly been recovering from her stroke, working with physical therapy. She no longer feels the vertiginous symptoms she previously felt but is slightly unsteady on her feet when ambulating. An undocumented drop in blood pressure was reported and orthostatic hypotension was suspected. I was contacted by Dr. Carr, who requested that nursing staff perform formal studies today, which showed no evidence of orthostasis. The patient reports that she is worried about the fact that she lives alone and the uncertainty of why the stroke occurred, which is providing some anxiety. She is also bothered by having a roommate and the noise and finds she is unable to sleep, and wishing to go home. She has been resistant to go to rehabilitation instead of going home. PAST MEDICAL HISTORY: 1. Hypertension. 2. Hyperlipidemia. 3. GERD. 4. History of unknown bleeding, noted in the chart as a GI bleed, which the patient states that is not the case. 5. History of stroke perioperatively in 1990 for renal artery stenosis angioplasty. 6. Hernia repair. 7. Appendectomy. 8. Cholecystectomy. 9. delivery x3. FAMILY HISTORY: The patient's mother at age 85 from an intracranial hemorrhage following trauma. Father from a myocardial infarction at age 52. 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 Reports cigarette smoking daily. No history of alcohol or substance abuse. OUTPATIENT MEDICATIONS: Not on aspirin due to history of unknown. Amlodipine, vitamin C, vitamin D, B12, iron, lisinopril, metoprolol, omeprazole. DRUG ALLERGIES: CODEINE, MEPERIDINE, TETRACYCLINE. MEDICATIONS: Meclizine, melatonin, atorvastatin, heparin subcu, 81 mg aspirin, labetalol 10 mg p.r.n. none given, senna, acetaminophen. REVIEW OF SYSTEMS: The review of systems is as per the history of present illness. All other systems were reviewed and reported as negative except as noted above. PHYSICAL EXAMINATION: Vital signs: Blood pressure 131/68, temperature 36.9, pulse 98, respiratory rate 16. Orthostatics performed on January 03, 2017 at 8:25 a.m.: With the patient lying down, blood pressure 157/79 and heart rate 118. Sitting blood pressure 155/81 with heart rate 105. Standing blood pressure 144/91 with heart rate 108. Head: Normocephalic, atraumatic. No evidence of carotid bruits. Cardiac: Tachycardic. Regular rhythm. S1 and S2 present. No edema. No murmurs. Extremities: No rashes, lesions or edema. The patient is alert oriented x3. Language and speech intact and fluent. No evidence of memory impairment. Recent memory and fund of knowledge evaluated and found to be intact. Mood is mildly depressed. Cranial nerves: Pupils equally reactive to light and accommodation. Extraocular movements intact. No nystagmus with lateral gaze. Visual rodas intact to confrontation bilaterally. No facial asymmetry. Sensation intact on the face bilaterally. Tongue midline. Palate raises symmetrically. SCM and shoulder shrug, as well as hearing, appear to be intact bilaterally. Motor strength: Strength 5/5 in the upper and lower extremities. Deep tendon reflexes: 2+ throughout symmetrically, with plantar reflex flexor. Sensation: Intact to pinprick, vibration, and proprioception upper and lower extremity. Coordination: Intact gltcyl-vk-kxyu, cfuk-rb-besz, and rapid alternating movements. Gait: Patient stands and ambulates with her walker without difficulty, though cautiously, feeling somewhat unsteady. LABORATORIES: Hemoglobin and hematocrit 8.7/29.5. Comprehensive BNP within normal limits from December 29, 2016. Iron low B12 levels high. UA negative at admission. Coagulation profile negative. ASSESSMENT AND RECOMMENDATIONS: The patient is a 71-year-old female with history of hypertension, hyperlipidemia, and previous stroke who presents with a left posterior cerebral artery stroke which occurred subacutely. 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 The case was reviewed with [facility], who apparently recommended Neurosurgery evaluation. CT angio was requested since the left vertebral artery could not be visualized and the patient's subacute posterior circulation stroke. Vertebral artery dissection or occlusion remains possible. The patient has numerous modifiable risks including cigarette smoking, hypertension, and hyperlipidemia. I agree with an 81 mg aspirin and iron replacement for the patient's iron deficiency which has likely led to iron-deficiency anemia. She was advised that smoking cessation is essential. She should also arrange for followup with a primary care physician. She must establish care with a physician to manage her modifiable risk factors. I did discuss those modifiable risk factors with her and included appropriate diet with Mediterranean diet, exercise, and smoking cessation, as well as continuing Lipitor and [address] angio results are not yet available. Once those results are available, and the study completed, I recommended contacting [facility] to review the imaging and to clarify their recommendations for further management an timing for neurosurgical intervention mentioned in hospitalist's note. In terms of the patient's orthostasis, the patient admits that she was quite dehydrated upon admission. No orthostasis is present on examination today but may have been transiently present with dehydration. Likely anxiety is triggering worsening symptoms reassurance and skilled rehabilitation is recommended. She may benefit from antidepressants such as fluoxetine since it is known that depression interferes with stroke recovery. I have spent over half of this 1-hour consultation in direct discussion with the patient regarding the etiology of her stroke, the findings on imaging studies, and recommendations for recovery. Thank you this consultation. Please call if needed. I would be glad to see her as an outpatient if she desires. MIKE
[2017-01-04] VITALS (8 sets, daily range): BP systolic 159–174; BP diastolic 77–83; PULSE 94–124; RESP 12–16; O2SAT 95–98
[2017-01-04] MEDS: Heparin 5,000 Unit/mL Inj SUBQ SCH ×2 (00:22→08:11)
--- NOTE | 2017-01-04 04:56 | NUR ---
CP PT called this RN into room and c/o increased epigastric pain that is now radiating to LUE and jaw. PT is not SOB. B/P WNL. [employer] reported some ST depression on tele. notified and ordered EKG. Nitro administered. Pain is slowly decreasing. did not want any labs at this time. WIll CTM. Addendum: 01/04/17 at 0628 by MARYANNE RYAN RN This was charted on the wrong pt. Please disregard. Incorrect.
[2017-01-04] MEDS: 0.9% Sodium Chloride 1,000 ML IV SCH (06:12)
--- NOTE | 2017-01-04 06:20 | NUR ---
Progress Note PT has slept minimal tonight as roommate was having a golytely prep done. Medicated once with tylenol for CBP. PT does not have any significant neuro deficits from CVA aside from generalized weakness that was noted on admit. Dispo is still pending as recommends SNF b/c pt lives alone. Pt not eager about this plan. B/P in the 150-160's systolic. PT in the 80's NSR. Brain CT is still pending. PT is a 1 person assist to BR. NO BM still, but refuses prn miralax. Will CTM.
--- NOTE | 2017-01-04 06:37 | NUR ---
Orientation I agree with Susan Mora RN assessments and charting. RN orientated to [facility] inpatient workflow and workspace.
[2017-01-04 07:36] LABS: BASOPHILS % (AUTO) 0.8 % (0-3); EOSINOPHILS % (AUTO) 2.8 % (0-5); MONOCYTES % (AUTO) 10.4 % (4-12); Mean Corpuscular Hemoglobin 18.8 pg (27.0-35.0); Mean Corpuscular Volume 62.8 fL (81-100); NEUTROPHILS % (AUTO) 68.7 % (40-74); Platelet Count 354 bil/L (150-400)
[2017-01-04] MEDS ORDERED: MELA5TAB14 PO (11:29)
[2017-01-04] MEDS ORDERED: ATOR40TA69 PO (11:29)
[2017-01-04] MEDS ORDERED: ASPI-973 PO (11:29)
[2017-01-04] MEDS ORDERED: Meclizine Hcl PO (11:29)
--- NOTE | 2017-01-04 11:32 | PCM.DIMED ---
Discharge Instructions Date of Service Jan 04, 2017 Dates of Hospitalization Dec 29, 2016 at 00:21 Discharge Diagnosis Discharge Diagnosis # Acute vertigo with vomiting. Present on admission. Improved # Bilateral carotid artery stenosis #Cerebral Aneurism. # Hypertensive emergency. Present on admission. Resolved. Started low dose Lisinopril (5mg daily) on 12/30 and today normotensive # Acute kidney injury. Present on admission. Resolved. # Dyslipidemia, chronic. Present on admission # GERD, chronic. stable Diet Heart Healthy Activity Limited until seen by PCP Call your provider Fever or Chills, Shortness of breath, Chest pain, Weakness (unilateral) Patient Instructions Follow-up plan DC to intermediate facility with follow up planning to be arranged following discharge. Liang Carr DO Jan 04, 2017 11:31
--- NOTE | 2017-01-04 11:38 | NUR ---
PAMELA lanier paged and notified that pt has not had a bowel movement since last Thursday 12/28 per her report. Her abdomen is soft and non tender to palpation and she has no n/v. passing gas. states this is a chronic problem. gave efrenalax this am. Addendum: 01/04/17 at 1214 by LUKE NAVA RN Pt able to have a medium sized formed, brown bowel movement at noon.
[2017-01-04] MEDS ORDERED: FEG324 PO (11:41)
--- NOTE | 2017-01-04 11:46 | PCM.DC.MED ---
Discharge Summary Date of Service Jan 04, 2017 Dates of Hospitalization Date of Hospital Admission Dec 29, 2016 at 00:21 Date of Discharge: Jan 04, 2017 Providers: Admitting Physician: Siddharth Perez MD Primary Care Physician: Jones Attending Physician: Siddharth Perez MD Diagnosis at Time of Discharge Diagnosis at Time of Discharge # Acute vertigo with vomiting. Present on admission. Improved # Bilateral carotid artery stenosis #Cerebral Aneurism. # Hypertensive emergency. Present on admission. Resolved. Started low dose Lisinopril (5mg daily) on 12/30 and today normotensive # Acute kidney injury. Present on admission. Resolved. # Dyslipidemia, chronic. Present on admission # GERD, chronic. stable Consultations Neurology, Dr Ron. Procedures XRay, CTs & MRIs Date of Service: 12/29/16 0126 PROCEDURE: MRI STROKE PROTOCOL ([id number]) IMPRESSION: BRAIN MRI: 1. Late subacute left cerebellar and posterior medullary infarct. Post contrast- enhancement is seen within the infarct, likely secondary to normal post-infarct sequelae. Followup brain MRI with and without intravenous contrast in 3 months is recommended to rule out the less likely possibility of underlying neoplasm. 2. Volume loss and small vessel ischemic disease. 3. Small chronic right thalamic infarct. BRAIN MR ANGIOGRAM: 1. Markedly reduced flow within the right distal internal carotid artery. 2. 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 3. 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 NECK MR ANGIOGRAM: 1. High-grade, roughly 80% right internal carotid artery origin stenosis. Corroboration with carotid arterial duplex examination is recommended. 2. High-grade, roughly 70% left internal carotid artery origin stenosis. 3. 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 4. Patent right vertebral artery. Suboptimally visualized and small caliber left proximal vertebral artery. 5. High-grade right and moderate to high-grade left subclavian artery stenoses. 6. Left thyroid mass, which could be further assessed with MRI, if clinically indicated. Findings discussed with Dr. Montalvo on 12.29.16 at 1305 hrs. The estimate of stenosis included in the report of the imaging study was calculated using the NASCET method Date of Service: 01/03/17 1219 PROCEDURE: CT ANGIOGRAPHY OF THE NECK WITH AND WITHOUT CONTRAST ([id number]) IMPRESSION: 1. Fusiform aneurysmal dilation of the left proximal cavernous internal carotid artery measuring approximate 9 mm. 2. Approximate 6 mm aneurysm within the anterior left cavernous internal carotid artery. 3. Approximately 80-90% stenosis at the origin of the right internal carotid artery. 4. Approximate 75% stenosis at the left internal carotid artery origin. 5. Prominent bilateral subclavian artery stenosis, right greater than left. 6. Marked region without definitively identified opacification within the proximal and proximal midportion of the left vertebral artery as above. While this could represent focal long segment occlusion, marked atresia 2 small for opacification could be considered if appropriate. The estimate of stenosis included in the report of the imaging study was calculated using the NASCET method Dictated by: Juliet Strickland M.D. on 01/03/2017 at 15:38 Dictated by: Aj Arizmendi M.D. on 12/29/2016 at 12:56 Brief History As per HPI by Dr. Arizmendi, "Patient is a 71-year-old female with history of CVA, hypertension, and dyslipidemia presenting with dizziness and vomiting. The patient reports onset of dizziness about five days ago. This was preceded by a couple of days where she "didn't feel very well," however, the patient isn't able elaborate on this. The patient describes the dizziness as the room spinning. She states it was noticeable upon standing and caused her to vomit. As a result, she hasn't eaten over the past four days and has only been drinking water. The patient reports head movements seem to make the dizziness worse. Patient's son visited her today and subsequently summoned EMS. In the ED , the patient was found to be orthostatic. At time of visit, the patient reports her dizziness has improved. She endorses fatigue but otherwise denies weakness, headache, acute vision change, tinnitus, hearing changes, changes in smell, numbness, tingling, chest pain, shortness of breath, abdominal pain, diarrhea, constipation, dysuria. In the ED, vitals: temp 37.2, HR 97, RR 15 satting 99% on room air, BP 191/80. Notable labs: BUN 28, creatinine 1.20" Hospital Course 71-year-old female with history of CVA, hypertension, and dyslipidemia presenting with dizziness and vomiting. # Acute vertigo with vomiting. Present on admission. Improved: MR stroke protocol shows: "Late subacute left cerebellar and posterior medullary infarct" , in addition to cerebral aneurism and significant and severe B/L carotid artery stenosis. Which if of these factors was playing in role in vertigo was not entirely clear even on discharge, but no focal deficits remains from stroke , and PRN Meclinzine was very helping in improving symptoms. Initially reviewed MRI findings with [employer] [facility]stroke on 12/30/16. per neurology recommendation should c/w ASA 325 daily (given pt was not on ASA prior to presentation). c/w Statin and goal SBP < 140 - also recommended for patient to f/u w/ both neurology ([facility] [phone]) and Neurosurgery (Dr. Zayas) ([phone]) in as soon as possible. It was offered to patient that we set her up with f/u but she wishes to call herself and setup the appointment following DC. - Echo: EF 65-70%, cardiac function did not appear to be playing a role in pt's symptoms, continuos telemetry monitoring through hospitalization supported this. #Unsteady gait /orthostasis : Given patient's continued impairment, instability weakness and overall deconditioning, as my recommendation as well as recommendation of neurologist Estela Kelly, that patient consider discharge to subacute rehabilitation facility as recommended by physical therapy as opposed to home discharge which had initially been her preference. On further consideration and admitting that she did not feel comfortable yet going home, was discharged to custodial facility for further reconditioning and hopefully shortly after return to home in much improved condition. Orthostasis noted at times to be severe, was much improved at time of discharge with hydration therapy, and continued physical therapy through her hospital stay. # Hypertensive emergency. Present on admission. Resolved -BP stable overnight, previously labile. But hypertension now resolved since DC of ACEi, -BP 191/80 on admit with vertigo and JERMAIN, now normalized. -Patient has history of hypertension but was not on medication as outpatient -Had started low dose Lisinopril (5mg daily) on 12/30, but given subsequent orthostasis and normotensive state, it was subsequently DC'd prior to discharge. #SIRS: Tachycardia and Leucocytosis: Initially there was concern for infection which may have contributing to symptoms, but this was not found to be the case, antibiotics not continued. SIRS findings resolved with hydrations and supportive care alone. # Acute kidney injury. Present on admission. Resolved with hydration. # Dyslipidemia, chronic. Present on admission-c/w Statin on discharge. # GERD, chronic. stable #Anemia: noted on admission, stable through hospitalization. Ferrous gluconate initiated on DC, which may help improve anemia and secondarily orthostasis. Exam Vital Signs (Last) Date Time Temp Pulse Resp B/P Pulse Ox O2 Delivery O2 Flow Rate FiO2 01/04/17 09:39 100 01/04/17 08:10 159/77 01/04/17 08:05 36.9 12 95 Room Air Exam General: Alert, Oriented X3, Cooperative, No Acute Distress Eyes: PERRLA, EOMI Mouth: Mucous Membranes Moist/[place]. Poor dentition. Cardiovascular: Regular Rate/Rhythm Extremities: No cyanosis/clubbing/edema bilaterally. Neurological: Grossly Neurologically Intact Test 12/28/16 21:23 12/29/16 00:05 12/29/16 05:40 01/01/17 05:40 Hold Purple Top Tube Received (Received) Prothrombin Time 10.7sec (8.1-12.5) Prothromb Time International Ratio 1.00ratio Activated Partial Thromboplast Time 26.8sec (22.8-33.0) Hold Blue Top Tube Received (Received) Total Bilirubin 0.9mg/dL (0.0-1.2) Aspartate Amino Transf (AST/SGOT) 23U/L (0-50) Alanine Aminotransferase (ALT/SGPT) 11U/L (0-32) Alkaline Phosphatase 115U/L (25-165) Troponin T 0.010ug/L (0.0-0.011) Pro-B-Type Natriuretic Peptide 367.0pg/mL (0-301) Total Protein 8.0g/dL (6.4-8.4) Albumin 4.4g/dL (3.4-5.0) Triglycerides Level 179mg/dL (0-149) Cholesterol Level 274mg/dL (100-199) LDL Cholesterol, Calculated 196.200mg/dL (0-99) VLDL Cholesterol 35.800mg/dL HDL Cholesterol 42mg/dL (>39) Cholesterol/HDL Ratio 6.52 (0.0-4.4) Hold Red Top Tube Received (Received) Hold [place] Top Tube Received (Received) Urine Color Yellow (YELLOW) Urine Appearance Clear (CLEAR,HAZY) Urine pH 5.5 (5.0-8.0) Urine Specific [place] 1.020 (1.003-1.035) Urine Protein Negativemg/dL (NEG,TRACE) Urine Glucose (UA) Negativemg/dL (NEGATIVE) Urine Ketones >80mg/dL (NEGATIVE) Urine Occult Blood Small (NEGATIVE) Urine Nitrite Negative (NEGATIVE) Urine Bilirubin Negative (NEGATIVE) Urine Urobilinogen Normalmg/dL (NORMAL) Urine Leukocyte Esterase Negative (NEGATIVE) Urine RBC 0-2/hpf (0-2) Urine WBC 0-5/hpf (0-5) Urine Epithelial Cells Moderate/hpf (NONE-MOD) Urine Crystals None seen (NONE SEEN) Urine Bacteria Few/hpf (NONE-FEW) Urine Hyaline Casts None/lpf (NONE) Urine Granular Casts None seen (NONE SEEN) Urine Waxy Casts None seen (NONE SEEN) Urine Red Blood Cell Casts None seen (NONE SEEN) Urine White Blood Cell Casts None seen (NONE SEEN) Urine Mucus None seen (None Seen) Urine Trichomonas None seen (NONE SEEN) Urine Yeast None (NONE SEEN) Urine Culture Reflexed Not indicated Hold Urine Received (Received) Reticulocyte Count,Calculated 1.5% (0.6-2.6) Iron Level 18ug/dL (35-150) Total Iron Binding Capacity 292ug/dL (250-450) Percent Iron Saturation 6%sat (15-50) Unsaturated Iron Binding 274.2ug/dL Ferritin 18ng/mL (13-150) Vitamin B12 Level 1301pg/mL (211-946) Folate 4.3ng/mL (>3.0) Magnesium Level 1.9mg/dL (1.6-2.6) Test 01/03/17 06:15 01/04/17 07:08 Hematology Comments White Blood Count 11.7th/mm3 (3.8-10.1) Red Blood Count 4.57mil/mm3 (3.90-5.20) Hemoglobin 8.6g/dL (12.0-15.6) Hematocrit 28.7% (35.0-46.0) Mean Corpuscular Volume 62.8fL (81-100) Mean Corpuscular Hemoglobin 18.8pg (27.0-35.0) Mean Corpuscular Hemoglobin Concent 30.0% (32.0-37.0) Red Cell Distribution Width 19.6% (12.3-15.4) Platelet Count 354bil/L (150-400) Neutrophils (%) (Auto) 68.7% (40-74) Lymphocytes (%) (Auto) 17.1% (14-46) Monocytes (%) (Auto) 10.4% (4-12) Eosinophils (%) (Auto) 2.8% (0-5) Basophils (%) (Auto) 0.8% (0-3) Sodium Level 139mEq/L (134-144) Potassium Level 4.2mEq/L (3.5-5.2) Chloride Level 104mEq/L (97-108) Carbon Dioxide Level 22mmol/L (18-29) Blood Urea Nitrogen 10mg/dL (8-27) Creatinine 0.96mg/dL (0.57-1.00) Estimat Glomerular Filtration Rate 83mL/min (>59) Glucose Level 118mg/dL (60-99) Calcium Level 8.7mg/dL (8.5-10.1) Discharge Medications Discharge Medications Aspirin (Aspirin) 81 Mg Tablet 81 MG PO DAILY Prescribed by: LIANG CARR DO Atorvastatin Calcium (Atorvastatin Calcium) 40 Mg Tablet 40 MG PO HS Prescribed by: LIANG CARR DO As needed ([Meclizine Hcl]) 25 MG TABLET 25 MG PO BID PRN PRN For Dizziness Prescribed by: LIANG CARR DO Melatonin (Melatonin) 5 Mg Tablet 5 MG PO HS PRN PRN Insomnia Prescribed by: LIANG CARR DO Followup Plan Follow-up plan DC to custodial facility with follow up planning to be arranged following discharge. Discharge Diet: Heart Healthy Discharge Activity: Limited until seen by PCP Time spent 55 minutes Liang Carr DO Jan 04, 2017 11:45
[2017-01-04] MEDS ORDERED: DOCU-41 PO (12:42)
--- NOTE | 2017-01-04 13:00 | NUR ---
Report Report called to Salome nurse at [facility]. Provided contact number for unit if needed. Addendum: 01/04/17 at 1353 by LUKE NAVA RN Patient also provided with contact information for follow up with neurology/neurosurgery, which was also discussed at bedside by
--- NOTE | 2017-01-04 14:07 | NUR ---
Social Work Note: Discharge Data& Assessment: Per pt is medically ready to discharge to [facility] for rehab. SW met with pt at bedside for final SNF preference as she was accepted at both [facility] and [facility]. Pt explained she had a preference for [facility]. SW spoke with admissions liaison Salome at [facility] who confirmed that they are still able to accept pt and have a bed available for her for this afternoon. [facility] arranged transportation via wheelchair van for pt for 2:30p.m. RN and updated and agreeable to plan. Pt denies any other needs. No other discharge needs identified. Plan: Per pt is medically ready to discharge to [facility] for rehab via wheelchair van arranged by the facility. Pt denies any other needs. No other discharge needs identified. All updated and agreeable to plan. BASIL Pearce
--- NOTE | 2017-01-04 14:36 | NUR ---
Discharge [facility]. Iv dc'd w/o complication. all discharge paperwork provided to transport. all belongings with pt.
== END 2017-01-04 14:35 | DRG 65 ==
LOC: EDBD 21:09 → SED 21:09 → MPC 12-29 00:21 → OBSVTOIN 12-29 00:21 → MOC 12-29 15:30
PROVIDERS: ADMIT Hospitalist; ATTEND Hospitalist
PROC: 3E0234Z Introduction of Serum, Toxoid and Vaccine into Muscle, Percutaneous Approach (ICD-10-PCS; principal; 2016-12-29)
DX: I63.9 Cerebral infarction, unspecified (principal); N17.9 Acute kidney failure, unspecified; I16.1 Hypertensive emergency; E78.5 Hyperlipidemia, unspecified; K21.9 Gastro-esophageal reflux disease without esophagitis; F17.210 Nicotine dependence, cigarettes, uncomplicated; R11.2 Nausea with vomiting, unspecified; I65.23 Occlusion and stenosis of bilateral carotid arteries; D64.9 Anemia, unspecified; Z23 Encounter for immunization; I67.1 Cerebral aneurysm, nonruptured